=== PATIENT | female | born 1995 | race Caucasian/White ===

== ENCOUNTER 2018-01-07 17:18 | Emergency (ER) | payer OTHER ==
[2018-01-07 17:33] VITALS: BP 106/68
--- NOTE | 2018-01-07 18:04 | UC ---
Barbara Loomis Emily, scribed for Cole Knox MD on 01/07/18 at 1753 . Complaint Female HPI - HPI Summary HPI Summary: This patient is a 22 year old F presenting to urgent care with a chief complaint of increased urinary frequency that began 3 days ago. The patient rates the pain 4/10 in severity. Symptoms aggravated by nothing. Symptoms alleviated by nothing. Patient reports suprapubic abd pain. Patient denies fever , chills, bowel symptoms, dysuria, and vaginal discharge. Pt reports symptoms being similar to previous UTI. - History Of Current Complaint Chief Complaint: UCGU Stated Complaint: POSS UTI Time Seen by Provider: 01/07/18 17:41 Hx Obtained From: Patient Hx Last Menstrual Period: 12/31/17 ?: No Onset/Duration: Sudden Onset, Lasting Days, Still Present Timing: Constant Severity Initially: Moderate Severity Currently: Moderate Pain Intensity: 4 Pain Scale Used: 0-10 Numeric Aggravating Factor(s): Nothing Alleviating Factor(s): Nothing - Allergies/Home Medications Allergies/Adverse Reactions: Allergies Allergy/AdvReac Type Severity Reaction Status Date / Time No Known Allergies Allergy Verified 01/07/18 17:32 PMH/Surg Hx/FS Hx/Imm Hx Previously Healthy: No Respiratory History: Asthma GI/ History: Other Other GI/ History: Positive UTI - Surgical History Surgical History: Yes Surgery Procedure, Year, and Place: right breast - Family History Known Family History: Positive: Hypertension - Social History Occupation: Employed Full-time Lives: Alone Alcohol Use: Occasionally Substance Use Type: None Smoking Status (MU): Never Smoked Tobacco Review of Systems Constitutional: Other - Negative fever and chills Gastrointestinal: Abdominal Pain, Other - Negative bowel symptoms Genitourinary: Frequency, Other - Negative dysuria and vaginal discharge All Other Systems Reviewed And Are Negative: Yes Physical Exam - Summary Physical Exam Summary: General: well-appearing, no pain distress Skin: warm, color reflects adequate perfusion, dry Head: normal Eyes: EOMI, DELANO ENT: normal Neck: supple, nontender Respiratory: CTA, breath sounds present Cardiovascular: RRR Abdomen: soft, Mild suprapubic tenderness Bowel: present Musculoskeletal: normal, strength/ROM intact Neurological: sensory/motor intact, A&O x3 Psychological: affect/mood appropriate Triage Information Reviewed: Yes Vital Signs: Initial Vital Signs Temp 98.5 F 01/07/18 17:30 Pulse 69 01/07/18 17:30 Resp 18 01/07/18 17:30 BP 106/68 01/07/18 17:30 Pulse Ox 100 01/07/18 17:30 Vital Signs Reviewed: Yes Re-Evaluation - Re-Evaluation First Eval Re-Evaluation Time: 17:55 Change: Unchanged Comment: Discussed results with pt Complaint Female Dx - Differential Dx/Diagnosis Provider Diagnoses: UTI Discharge - Sign-Out/Discharge Documenting (check all that apply): Discharge/Admit/Transfer - Discharge Plan Condition: Stable Disposition: HOME Prescriptions: Sulfamethox/Trimethoprim DS* [Bactrim DS 800/160 TAB*] 1 tab PO BID #20 tab Patient Education Materials: Urinary Tract Infection in Women (ED) Referrals: [facility] [Outside] Additional Instructions: FOLLOW UP WITH YOUR DOCTOR IF NOT COMPLETELY IMPROVED. GET RECHECKED FOR ANY WORSENING OF YOUR CONDITION OR QUESTIONS OR CONCERNS. - Billing Disposition and Condition Condition: STABLE Disposition: HOME The documentation as recorded by the Barbara hunter Emily accurately reflects the service I personally performed and the decisions made by me, Cole Knox MD.
--- NOTE | 2018-01-08 15:09 | UC ---
- Progress Note Progress Note: Lab called today saying that they did not receive a urine culture sample, but one was ordered. Pt was treated with Bactrim at visit. Please call her and if her symptoms are gone/improving - may continue current course and f/u prn If her symptoms worsen or do not change after current anbx - needs to be seen again. Re-Evaluation - Re-Evaluation First Eval Re-Evaluation Time: 17:55 Change: Unchanged Comment: Discussed results with pt Discharge - Sign-Out/Discharge Documenting (check all that apply): Post-Discharge Follow Up - Discharge Plan Condition: Stable Disposition: HOME Prescriptions: Sulfamethox/Trimethoprim DS* [Bactrim DS 800/160 TAB*] 1 tab PO BID #20 tab Patient Education Materials: Urinary Tract Infection in Women (ED) Referrals: [facility] [Outside] Additional Instructions: FOLLOW UP WITH YOUR DOCTOR IF NOT COMPLETELY IMPROVED. GET RECHECKED FOR ANY WORSENING OF YOUR CONDITION OR QUESTIONS OR CONCERNS. - Billing Disposition and Condition Condition: STABLE Disposition: HOME
== END 2018-01-07 18:25 | disposition home or self-care (01) ==
LOC: UCEAST 17:18
DX: N39.0 Urinary tract infection, site not specified (principal)
CPT/HCPCS: 81003; 99212; G0463

== ENCOUNTER 2018-06-03 20:29 | Emergency (ER) | payer OTHER ==
[2018-06-03 20:37] VITALS: BP 135/76
[2018-06-03] MEDS ORDERED: DOXYcycline CAP(*) 100 MG PO ONE (21:11)
--- NOTE | 2018-06-03 21:19 | UC ---
Skin Complaint HPI - HPI Summary HPI Summary: Patient discovered a tick attached behind her right knee earlier today. Attempted to remove it but there is a small piece of it retained. Thinks it may have attached about 2 days ago when she was outside. No fever, headache, body aches or joint pain. - History of Current Complaint Chief Complaint: UCSkin Time Seen by Provider: 06/03/18 20:59 Stated Complaint: TICK BITE Hx Obtained From: Patient Hx Last Menstrual Period: one week ago Onset/Duration: Sudden Onset, Still Present Timing: Constant Onset Severity: Moderate Current Severity: Moderate Pain Intensity: 4 Pain Scale Used: 0-10 Numeric Character: Pain Aggravating Factor(s): Touch Alleviating Factor(s): Nothing Related History: Insect Bite/Sting - Allergy/Home Medications Allergies/Adverse Reactions: Allergies Allergy/AdvReac Type Severity Reaction Status Date / Time No Known Allergies Allergy Verified 06/03/18 20:38 Home Medications: Home Medications NK [No Home Medications Reported] 06/03/18 [History Confirmed 06/03/18] Review of Systems Constitutional: Negative Skin: Other - TICK BITE Respiratory: Negative Cardiovascular: Negative Gastrointestinal: Negative Musculoskeletal: Negative Neurological: Negative All Other Systems Reviewed And Are Negative: Yes PMH/Surg Hx/FS Hx/Imm Hx Previously Healthy: Yes - Surgical History Surgical History: Yes Surgery Procedure, Year, and Place: Right breast - Family History Known Family History: Positive: Hypertension - Social History Alcohol Use: Occasionally Substance Use Type: None Smoking Status (MU): Never Smoked Tobacco Physical Exam Triage Information Reviewed: Yes Appearance: Well-Appearing, No Pain Distress, Well-Nourished Vital Signs: Initial Vital Signs Temp 98.4 F 06/03/18 20:35 Pulse 76 06/03/18 20:35 Resp 18 06/03/18 20:35 BP 135/76 06/03/18 20:35 Pulse Ox 99 06/03/18 20:35 Vital Signs Reviewed: Yes Eyes: Positive: Conjunctiva Clear ENT: Positive: Hearing grossly normal Neck: Positive: Supple Respiratory: Positive: No respiratory distress, No accessory muscle use Cardiovascular: Positive: Pulses Normal Abdomen Description: Positive: Soft Musculoskeletal: Positive: No Edema Neurological: Positive: Alert Psychological: Positive: Age Appropriate Behavior Skin: Positive: Other - TICK BITE BEHIND RIGHT KNEE WITH PINPOINT PIECE OF TICK RETAINED. 1CM SURROUNDING ERYTHEMA Course/Dx - Course Course Of Treatment: ADVISED PATIENT THAT THERE IS NO MEDICAL NECESSITY TO REMOVE THE PIN POINT SIZED PIECE OF TICK THAT IS RETAINED. PATIENT STATES SHE WOULD LIKE TO HAVE ME TRY TO TAKE IT OUT. ATTEMPTED TO REMOVE TINY PIECE OF TICK WITH 18-GAUGE NEEDLE AND SPLINTER FORCEPS. UNABLE TO REMOVE IT IN ENTIRETY. REASSURED PATIENT THAT THIS WILL NOT INCREASE HER RISK OF LYME DISEASE. SHE DOES MEET CRITERIA FOR LYME PROPHYLAXIS. 200 MG OF DOXYCYCLINE ADMINISTERED. ADVISED TO BE VIGILANT OF HER SYMPTOMS OVER THE NEXT FEW WEEKS. - Diagnoses Provider Diagnoses: TICK BITE Discharge - Sign-Out/Discharge Documenting (check all that apply): Patient Departure All imaging exams completed and their final reports reviewed: No Studies - Discharge Plan Condition: Stable Disposition: HOME Patient Education Materials: Tick Bite (ED) Referrals: No Primary Care Phys,NOPCP [Primary Care Provider] - Additional Instructions: You received 200mg of doxycycline for prophylaxis against Lyme disease. The Infectious Disease Society of [place] (IDSA) does not generally recommend antimicrobial prophylaxis for prevention of Lyme disease after a recognized tick bite. However, in areas that are highly endemic for Lyme disease, a single dose of doxycycline may be offered to adult patients (200 mg) who are not and to children older than 8 years of age (4 mg/kg up to a maximum dose of 200 mg) when all of the following circumstances exist: CRITERIA FOR RECEIVING PROPHYLACTIC TREATMENT FOR LYME DISEASE 1) TICK ATTACHED FOR AT LEAST 36 HRS 2) TICK IS AN ADULT OR [place] DEER TICK 3) YOU LIVE IN AN AREA WHERE LYME DISEASE IS PREVALENT (i.e., [place], [place], [place], [place], [place] , [place], [place], [place], [place], [place], [place], [place], [place], [place]) 4) YOU HAVE NO CONTRAINDICATION TO THE MEDICATION (DOXYCYCLINE) 5) PROPHYLAXIS IS BEGUN WITHIN 72 HRS OF TICK REMOVAL Antibiotic treatment following a tick bite is not recommended as a means to prevent anaplasmosis, babesiosis, ehrlichiosis, or [place] spotted fever. There is no evidence this practice is effective, and it may simply delay onset of disease. Instead, persons who experience a tick bite should be alert for symptoms suggestive of tickborne illness and consult a physician if fever, rash, headache or other symptoms of concern develop. YOUR CHANCES OF DEVELOPING LYME DISEASE ARE EXTREMELY SMALL. BE VIGILANT OF YOUR SYMPTOMS AND DON'T HESITATE TO GET SEEN AGAIN IF YOU DEVELOP UNEXPLAINED FEVER, HEADACHE, JOINT PAIN, BODY ACHES, RASH OR ANY OTHER CONCERNING SYMPTOMS. CALL THE NUMBER BELOW FOR ASSISTANCE IN ESTABLISHING WITH A PCP An additional resource available to assist in finding the appropriate physician for your health care needs is the [facility] ([facility]). You may contact them by calling [phone]. - Billing Disposition and Condition Condition: STABLE Disposition: Home
== END 2018-06-03 21:21 | disposition home or self-care (01) ==
LOC: UCEAST 20:29
DX: S80.861A Insect bite (nonvenomous), right lower leg, initial encounter (principal); W57.XXXA Bitten or stung by nonvenomous insect and other nonvenomous arthropods, initial encounter; Y92.9 Unspecified place or not applicable
CPT/HCPCS: 99211; A9270-GY; G0463

== ENCOUNTER 2018-08-20 16:13 | Emergency (ER) | payer OTHER ==
[2018-08-20 16:23] VITALS: BP 129/60
--- NOTE | 2018-08-20 16:48 | UC ---
FLU HPI - HPI Summary HPI Summary: 23-year-old woman comes to clinic today with a chief complaint of fevers chills and body aches. This all started yesterday. Feels like by got hit by a truck. Some chest congestion. No wheezing. Has not tried any [id number] medications. - History of Current Complaint Chief Complaint: UCGeneralIllness Stated Complaint: RESP COMPLAINT Time Seen by Provider: 08/20/18 16:34 Hx Last Menstrual Period: ended 1 week ago Pain Intensity: 7 - Allergy/Home Medications Allergies/Adverse Reactions: Allergies Allergy/AdvReac Type Severity Reaction Status Date / Time No Known Allergies Allergy Verified 08/20/18 16:23 PMH/Surg Hx/FS Hx/Imm Hx Previously Healthy: Yes - Surgical History Surgical History: Yes Surgery Procedure, Year, and Place: Right breast - Family History Known Family History: Positive: Hypertension - Social History Alcohol Use: Occasionally Substance Use Type: None Smoking Status (MU): Never Smoked Tobacco Review of Systems All Other Systems Reviewed And Are Negative: Yes Constitutional: Positive: Fever, Chills Skin: Positive: Negative Eyes: Positive: Negative ENT: Positive: Sore Throat, Nasal Discharge Respiratory: Positive: Other - see hpi Cardiovascular: Positive: Negative Gastrointestinal: Positive: Negative Genitourinary: Positive: Negative Motor: Positive: Negative Neurovascular: Positive: Negative Musculoskeletal: Positive: Myalgia Neurological: Positive: Negative Psychological: Positive: Negative Is Patient Immunocompromised?: No Physical Exam Triage Information Reviewed: Yes Appearance: No Pain Distress, Well-Nourished, Ill-Appearing - mild Vital Signs: Initial Vital Signs Temp 99 F 08/20/18 16:20 Pulse 95 08/20/18 16:20 Resp 16 08/20/18 16:20 BP 129/60 08/20/18 16:20 Pulse Ox 100 08/20/18 16:20 Vital Signs Reviewed: Yes Eye Exam: Normal Eyes: Positive: Conjunctiva Clear ENT: Positive: Pharyngeal erythema, Nasal congestion, Nasal drainage, TMs normal Neck exam: Normal Neck: Positive: Supple Respiratory: Positive: Lungs clear, Normal breath sounds, No respiratory distress Cardiovascular: Positive: RRR Musculoskeletal Exam: Normal Musculoskeletal: Positive: Strength Intact, ROM Intact Neurological Exam: Normal Neurological: Positive: Alert, Muscle Tone Normal Psychological Exam: Normal Psychological: Positive: Age Appropriate Behavior Skin Exam: Normal Flu Course/Dx - Differential Dx/Diagnosis Provider Diagnosis: Influenza Discharge - Sign-Out/Discharge Documenting (check all that apply): Patient Departure All imaging exams completed and their final reports reviewed: No Studies - Discharge Plan Condition: Stable Disposition: HOME Prescriptions: Oseltamivir CAP* [Tamiflu CAP*] 75 mg PO BID #10 cap Patient Education Materials: Influenza (ED) Forms: *Work Release Referrals: [facility] [place] [facility] [place] [facility] [Outside] Additional Instructions: FOLLOW UP WITH YOUR DOCTOR IF NOT COMPLETELY IMPROVED. GET RECHECKED FOR ANY WORSENING OF YOUR CONDITION OR QUESTIONS OR CONCERNS. - Billing Disposition and Condition Condition: STABLE Disposition: Home
[2018-08-20] MEDS: Ibuprofen TAB* 600 MG PO ONE (16:57)
== END 2018-08-20 17:28 | disposition home or self-care (01) ==
LOC: UCEAST 16:13
DX: J11.1 Influenza due to unidentified influenza virus with other respiratory manifestations (principal)
CPT/HCPCS: 87651; 99212; A9270-GY; G0463

== ENCOUNTER 2022-10-22 18:01 | Inpatient (IN) ==
[2022-10-22] MEDS ORDERED: Buffered Lidocaine 1% SYRIN 1 ml INTRADERM ONE (19:09)
[2022-10-22] MEDS ORDERED: Promethazine INJ(RESTRICTED) 25 MG/ML 1 ml VIAL IV PRN (19:09)
[2022-10-22] MEDS ORDERED: Lactated Ringers 1000 ml BAG 1,000 ML IV ONE (19:09)
[2022-10-22 19:19] LABS: Urine Benzodiazepine Screen None Detected (None Detect); Urine Cannabinoids Screen None Detected (None Detect); Urine Opiates Screen None Detected (None Detect)
[2022-10-22 19:30] LABS: ABS Eosinophils 0.2 10^3/ul (0-0.6); ABS Lymphocytes 3.2 10^3/ul (1.0-4.8); ABS Monocytes 0.8 10^3/ul (0-0.8); ABS Neutrophils 11.1 10^3/ul (1.5-7.7); Hematocrit 36 % (35-47); Hemoglobin 11.8 g/dL (12.0-16.0); Lymphocyte % 21.2 %; Mean Corpuscular HGB Conc 33 g/dL (31-36); Mean Corpuscular Hemoglobin 28 pg (27-31); Mean Corpuscular Volume 85 fL (80-97); Mean Platelet Volume 7.7 fL (7.4-10.4); Platelet Count 276 10^3/uL (150-450); Red Blood Count 4.23 10^6 /uL (3.70-4.87); Red Cell Distribution Width 14 % (10-15); White Blood Count 15.3 10^3/uL (3.5-10.8)
[2022-10-22] MEDS ORDERED: OBEPIDURAL (200 ML) 200 ML EPIDURAL ONE (19:30)
[2022-10-22] MEDS ORDERED: Lidocaine 1.5% EPI 1:200,000 30 ML SDV ONE (19:30)
[2022-10-22] MEDS ORDERED: Lactated Ringers 1000 ml BAG 1,000 ML IV SCH (20:00)
[2022-10-22 20:45] LABS: Urine Appearance Turbid; Urine Bilirubin Negative (Negative); Urine Blood Negative (Negative); Urine Color Yellow; Urine Glucose Negative (Negative); Urine Ketones Negative (Negative); Urine Nitrite Negative (Negative); Urine Protein Negative (Negative); Urine Specific Gravity 1.016 (1.002-1.030); Urine Urobilinogen Negative (Negative)
[2022-10-22 21:02] LABS: Urine Benzodiazepine Screen None Detected (None Detect); Urine Opiates Screen None Detected (None Detect)
[2022-10-23] MEDS ORDERED: Oxytocin in LR 20,000 MILLI.UNIT/1,000 ML BAG IV ONE (00:14)
[2022-10-23] MEDS ORDERED: Dibucaine 1% OINT 28.35 GM TUBE PR PRN (01:19)
[2022-10-23] MEDS ORDERED: Witch Hazel PAD JAR TOPICAL PRN (01:19)
[2022-10-23] MEDS ORDERED: Oxytocin in LR 20,000 MILLI.UNIT/1,000 ML BAG IV SCH (01:30)
[2022-10-23] MEDS ORDERED: Sodium Citrate/Citric Acid LIQ 15 ML UDC PO PRN (01:53)
[2022-10-23] MEDS ORDERED: Lactated Ringers 1000 ml BAG 1,000 ML IV ONE (01:53)
[2022-10-23] MEDS ORDERED: Lactated Ringers 1000 ml BAG 500 ML IV PRN ×2 (01:53)
[2022-10-23] MEDS ORDERED: Phenylephrine 40 mcg/mL 10mL (400mcg) SYRINGE IV PUSH PRN ×2 (01:53)
[2022-10-23] MEDS ORDERED: OBEPIDURAL (200 ML) 200 ML EPIDURAL SCH (02:00)
[2022-10-23] MEDS ORDERED: Lactated Ringers 1000 ml BAG 1,000 ML IV SCH ×2 (02:00)
[2022-10-23] MEDS ORDERED: RHO D Immune Globulin (HUMAN) 300 MCG = 1,500 I.U. INJ IM ONE (14:56)
[2022-10-24 08:18] LABS: Hematocrit 32 % (35-47); Hemoglobin 10.5 g/dL (12.0-16.0); Mean Corpuscular HGB Conc 33 g/dL (31-36); Mean Corpuscular Hemoglobin 28 pg (27-31); Mean Corpuscular Volume 85 fL (80-97); Mean Platelet Volume 7.5 fL (7.4-10.4); Platelet Count 212 10^3/uL (150-450); Red Blood Count 3.77 10^6 /uL (3.70-4.87); Red Cell Distribution Width 14 % (10-15); White Blood Count 15.3 10^3/uL (3.5-10.8)
[2022-10-24 09:06] LABS: ABS Eosinophils 0.2 10^3/ul (0-0.6); ABS Lymphocytes 2.5 10^3/ul (1.0-4.8); ABS Monocytes 0.7 10^3/ul (0-0.8); ABS Neutrophils 11.8 10^3/ul (1.5-7.7); Eosinophil % 1.5 %; Lymphocyte % 16.4 %
[2022-10-25 07:24] VITALS: BP 114/62
== END 2022-10-25 13:38 | disposition home or self-care (01) | DRG 560 ==
LOC: MCHOBOUT 18:01 → MCHOB 19:05
PROVIDERS: ADMIT Registered Nurse; ATTEND Registered Nurse